=== PATIENT | female | born 1935 | race Caucasian/White ===

== ENCOUNTER 2017-03-26 09:44 | Outpatient (CLI) ==
--- NOTE | 2017-03-26 10:39 | DI ---
EXAM: Three views of the right wrist. History: Right wrist pain and weakness. Findings: Osteopenia. No acute fracture or dislocation. Moderate narrowing of the first carpal met acarpal joint. Mild joint space narrowing seen elsewhere. Impression: No acute osseous abnormality. 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
== END 2017-03-26 09:45 | disposition home or self-care (01) ==
LOC: RAD 09:44
PROVIDERS: ATTEND Internal Medicine
DX: M25.531 Pain in right wrist (principal); R53.1 Weakness

== ENCOUNTER 2017-05-31 08:51 | Outpatient (CLI) ==
--- NOTE | 2017-05-31 11:57 | MAMMO ---
EXAM: Bilateral digital screening mammogram History: Screening Comparison: Screening mammogram 06/19/2015 Findings: MLO and CC views of bilateral breasts demonstrate scattered fibroglandular breast parench yma. Stable benign bilateral vascular calcifications. There are no dominant masses, no suspicious microcalcifications and no architectural distortions Impression: Benign stable mammogram. Recommend followup routine screening mammography in 1 year. BIRADS 2
== END 2017-05-31 08:52 | disposition home or self-care (01) ==
LOC: RAD 08:51
DX: Z12.31 Encounter for screening mammogram for malignant neoplasm of breast (principal)

== ENCOUNTER 2018-09-20 13:15 | Outpatient (CLI) ==
--- NOTE | 2018-09-21 09:46 | MAMMO ---
EXAM: Bilateral digital screening mammogram (2-D and 3-D) History: Screening Comparison: Bilateral mammogram 05/31/2017 Findings: MLO and CC views of bilateral breasts demonstrate scattered fibroglandular breast parenchy ma. CAD was reviewed by the radiologist. Tomosynthesis was performed. Stable benign bilateral scat tered and vascular calcifications. There are no dominant masses, no suspicious microcalcifications a nd no architectural distortions Impression: Benign stable mammogram. Recommend followup routine screening mammography in 1 year. BIRADS 2
== END 2018-09-20 13:16 | disposition home or self-care (01) ==
LOC: RAD 13:15
PROVIDERS: ATTEND Nurse Practitioner Family
DX: Z12.31 Encounter for screening mammogram for malignant neoplasm of breast (principal)

== ENCOUNTER 2019-07-05 11:00 | Outpatient (RCR) | payer OTHER ==
--- NOTE | 2019-06-22 15:15 | RS.OTDNOTE ---
Subjective Date of Note: 06/22/19 Visit #: 7 Number of visits approved by Insurance: 12 Date of Evaluation: 06/05/19 Payer Source: MEDICARE Treatment Diagnosis: OA Hands *Precautions: At risk for trigger finger Current Complaints/Gains: Pt states she is making slow progress but it is progress. States her trigger finger is catching less times during the day. Pain Assessment - Pain Description Pain Description: Sharp, Dull Pain Location: Left ring digit in the MP, PIP, DIP joints and in the palm of the hand just distal of the MP joint. Pain Description: Pt reports tightness and pain a 4-5/10. Current Pain Intensity: 2 Worst Pain Intensity: 4-5 Modalities - Treatment Modality: Ultrasound Parameters/Method Applied: .08wcm2 x 10 mins and x 6 mins thumb MCP/thenar joint and up radial forearm. Patient Position: Sitting Interventions - Exercise/Activities Exercise/Activities/Manual Therapy: Manual therapy/scar massage performed along with PROM/stretching(extension/flexion) progressed to AROM, flexion/extension of PIP, DIP, MCP and thumb PROM-AROM. GS act performed with yellow progressed to red and green digi-flex. HEP with yellow tputty ex's performed. 2# hand weight for wrist flexion/extension and pro/supination. HOME EXERCISE PROGRAM: Progressive stretching program - Objective Findings Objective Findings:: Decreased swelling noted along with increased AROM - Charges Timed Code Treatment Minutes: 54 Total Treatment Time: 54 Procedures billed for this date of service:: MT2 EX US Assessment Patient Education: Education of diagnosis, Body/Joint mechanics, Home Exercise Program, Home Safety, Activity Modification, Education of Plan of Care Patient demonstrates compliance with HEP?: Yes Short Term Goals Goal #1: Pt to increase full fist to 90%. Goal to be met by: 06/16/19 Progress towards goal: Met Goal #2: Pt to increase sfdc architect strength to 25#. Goal to be met by: 06/16/19 Progress towards goal: Met Goal #3: Pt to increase MP flexion to 45 degrees. Goal to be met by: 06/16/19 Progress towards goal: Partially Met Goal #4: Pt pain to decrease to 0-2/10 with AROM. Goal to be met by: 06/16/19 Progress towards goal: Progressing Furnace Checker Goals Goal #1: Pt to increase full fist to 100%. Goal to be met by: 07/05/19 Progress towards goal: Progressing Goal #2: Pt to increase sfdc architect strength to 30#. Goal to be met by: 07/05/19 Progress towards goal: Progressing Goal #3: Pt to increase MP flexion to 90 degrees. Goal to be met by: 07/05/19 Progress towards goal: Progressing Goal #4: Pt to have full AROM of LUE digits and hand to complete activities. Goal to be met by: 07/05/19 Progress towards goal: Progressing Plan Dates of Furnace Checker Goals: 07/05/19 Expiration date of current Insurance Approval:: 07/05/19 PLAN: Continue per POC to max pt's AROM/strength with decreased c/o pain.
--- NOTE | 2019-06-26 15:23 | RS.OTDNOTE ---
Subjective Date of Note: 06/26/19 Visit #: 8 Number of visits approved by Insurance: 12 Date of Evaluation: 06/05/19 Payer Source: MEDICARE Treatment Diagnosis: OA Hands *Precautions: At risk for trigger finger Current Complaints/Gains: Pt states increased c/o pain in dorsal hand. States she "messed with the putty too much." Pain Assessment - Pain Description Pain Description: Sharp, Dull Pain Location: Left ring digit in the MP, PIP, DIP joints and in the palm of the hand just distal of the MP joint. Pain Description: Pt reports tightness and pain a 4-5/10. Current Pain Intensity: 2 Worst Pain Intensity: 7 Modalities - Treatment Modality: Ultrasound Parameters/Method Applied: .04-1.5w/cm x15 mins total Patient Position: Sitting - Hot Pack/Cryotherapy Treatment: Hot Pack Comments:: x10 mins prior to TE Interventions - Exercise/Activities Exercise/Activities/Manual Therapy: Manual therapy/scar massage performed along with PROM/stretching(extension/flexion) progressed to AROM, flexion/extension of PIP, DIP, MCP and thumb PROM-AROM. GS act performed with yellow progressed to red and green digi-flex. HEP with yellow tputty ex's performed. 2# hand weight for wrist flexion/extension and pro/supination. HOME EXERCISE PROGRAM: Progressive stretching program - Objective Findings Objective Findings:: Decreased swelling noted along with increased AROM following tx - Charges Timed Code Treatment Minutes: 51 Total Treatment Time: 62 Procedures billed for this date of service:: HP EX MT US Assessment Patient Education: Education of diagnosis, Body/Joint mechanics, Home Exercise Program, Home Safety, Activity Modification, Education of Plan of Care Patient demonstrates compliance with HEP?: Yes Short Term Goals Goal #1: Pt to increase full fist to 90%. Goal to be met by: 06/16/19 Progress towards goal: Met Goal #2: Pt to increase resource recovery engineer strength to 25#. Goal to be met by: 06/16/19 Progress towards goal: Met Goal #3: Pt to increase MP flexion to 45 degrees. Goal to be met by: 06/16/19 Progress towards goal: Met Goal #4: Pt pain to decrease to 0-2/10 with AROM. Goal to be met by: 06/16/19 Progress towards goal: Progressing Reed Cleaner Goals Goal #1: Pt to increase full fist to 100%. Goal to be met by: 07/05/19 Progress towards goal: Progressing Goal #2: Pt to increase resource recovery engineer strength to 30#. Goal to be met by: 07/05/19 Progress towards goal: Progressing Goal #3: Pt to increase MP flexion to 90 degrees. Goal to be met by: 07/05/19 Progress towards goal: Progressing Goal #4: Pt to have full AROM of LUE digits and hand to complete activities. Goal to be met by: 07/05/19 Progress towards goal: Progressing Plan Dates of Nursing Home Goals: 07/05/19 Expiration date of current Insurance Approval:: 07/05/19 PLAN: Continue per POC to max UE AROM/strength with decreased c/o pain.
--- NOTE | 2019-06-29 15:14 | RS.OTDNOTE ---
Subjective Date of Note: 06/29/19 Visit #: 9 Number of visits approved by Insurance: 12 Date of Evaluation: 06/05/19 Payer Source: MEDICARE Treatment Diagnosis: OA Hands *Precautions: At risk for trigger finger Current Complaints/Gains: Pt states less pain and finger "sticking the last few days." States she has not utilized the yellow putty but states good compliance with stretching and tendon glides ex's. Pain Assessment - Pain Description Pain Description: Sharp, Dull Pain Location: Left ring digit in the MP, PIP, DIP joints and in the palm of the hand just distal of the MP joint. Pain Description: Pt reports tightness and pain a 4-5/10. Modalities - Treatment Parameters/Method Applied: .04-1.0w/cm2 x 12 mins total Treatment Area: thumb MCP and thenar eminence and 4th digit - Hot Pack/Cryotherapy Treatment: Hot Pack Interventions - Exercise/Activities Exercise/Activities/Manual Therapy: Manual therapy/scar massage performed along with PROM/stretching(extension/flexion) progressed to AROM, flexion/extension of PIP, DIP, MCP and thumb PROM-AROM. GS act performed with yellow progressed to red and green digi-flex. HEP with yellow tputty ex's performed. 2# hand weight for wrist flexion/extension and pro/supination. Tendon glides and thumb to palm opposition AROM ex's. HOME EXERCISE PROGRAM: Progressive stretching program - Objective Findings Objective Findings:: Decreased swelling noted along with increased AROM following tx - Charges Timed Code Treatment Minutes: 48 Total Treatment Time: 55 Procedures billed for this date of service:: HP US EX MT Assessment Patient Education: Education of diagnosis, Body/Joint mechanics, Home Exercise Program, Home Safety, Activity Modification, Education of Plan of Care Patient demonstrates compliance with HEP?: Yes Short Term Goals Goal #1: Pt to increase full fist to 90%. Goal to be met by: 06/16/19 Progress towards goal: Met Goal #2: Pt to increase fancy needleworker strength to 25#. Goal to be met by: 06/16/19 Progress towards goal: Met Goal #3: Pt to increase MP flexion to 45 degrees. Goal to be met by: 06/16/19 Progress towards goal: Met Goal #4: Pt pain to decrease to 0-2/10 with AROM. Goal to be met by: 06/16/19 Progress towards goal: Progressing Skilled Nursing Goals Goal #1: Pt to increase full fist to 100%. Goal to be met by: 07/05/19 Progress towards goal: Partially Met Goal #2: Pt to increase fancy needleworker strength to 30#. Goal to be met by: 07/05/19 Progress towards goal: Progressing Goal #3: Pt to increase MP flexion to 90 degrees. Goal to be met by: 07/05/19 Progress towards goal: Partially Met Goal #4: Pt to have full AROM of LUE digits and hand to complete activities. Goal to be met by: 07/05/19 Progress towards goal: Partially Met Plan Dates of Skilled Nursing Goals: 07/05/19 Expiration date of current Insurance Approval:: 07/05/19 PLAN: Continue tx per POC to max hand AROM/strength
--- NOTE | 2019-07-05 15:13 | RS.OTPN ---
Subjective Date of Note: 07/03/19 Visit #: 10 Number of visits approved by Insurance: 12 Date of Evaluation: 06/05/19 Payer Source: MEDICARE Date of Onset/Injury/Change in Status: 05/31/19 Surgery Performed?: No Treatment Diagnosis: OA Hands Treatment Side (optional): Left *Precautions: At risk for trigger finger Prior Level of Function.....Patient was independent with: ADL's, Self Care, Work /Vocation, Caregiving, Ambulation/Mobility, Community Integration/Access History of Condition/Mechanism of Injury: Pt has had increased pain and difficulty with AROM of the LUE ring digit flexion and MP/PIP/DIP joints. Pt reports she has a sticky finger and it catches at times. Level of Function: Pt has had to increase her assistance with cleaning, cooking , and carrying items due to the pain and discomfort in her Left ring digit and hand. Pt is not able to open a jar. Pt has difficulty carrying groceries. Functional Limitations: Lifting, Carrying Current Complaints/Gains: Pt complains of the catching of the ring digit on the LUE when she squeezes very tight. Pt has pain with flexion of the LEft ring digit MP, PIP, and DIP joints into full flexion of a fist. Pt complains that it really has not improved much. OT feels that patient has improved minimally because now she is able to make 95% of a full fist. Pt continues with discomfort in the Left ring digit. Pt has difficulty with functional use of fine motor tasks with the LUE. Pain Assessment - Pain Description Pain Description: Sharp, Dull Pain Location: Left ring digit in the MP, PIP, DIP joints and in the palm of the hand just distal of the MP joint. Pain Description: Pt reports tightness and pain a 4-5/10. Current Pain Intensity: 0 Worst Pain Intensity: 5 Other comments regarding pain:: Pain increases with full flexion of digits and when the finger locks in flexion. Functional Outcome Measures - G Codes & Severity Modifier G Codes: . Source of G Code score: . Observation - Observation Posture: Normal Handedness: Right Palpation Palpation Findings: Tenderness, Trigger Point Comments:: Pt has 2 trigger points in the subscapularis muscle of the left shoulder. Pt has tenderness with making a full fist of the LUE. Pt has pain in the palm of the left hand. Sensation Right Upper Extremity: Intact/Normal Right Lower Extremity: Impaired Comments: Pt reports tingling and numbness of the Left small digit and ring digit. Modalities - Treatment Parameters/Method Applied: .4 w/cm2 for 10 minutes to decrease scar tissue, promote healing, increase elasticity of left ring digit muscles and tendon to increase flexion of Left hand into a full fist. Treatment Area: Left ring digit MP area where scar tissue is present. Patient Position: Sitting - Hot Pack/Cryotherapy Treatment: Hot Pack Interventions - Exercise/Activities Exercise/Activities/Manual Therapy: Manual therapy/scar massage performed along with PROM/stretching(extension/flexion) progressed to AROM, flexion/extension of PIP, DIP, MCP and thumb PROM-AROM. GS act performed with yellow progressed to red and green digi-flex. HEP with yellow tputty ex's performed. 2# hand weight for wrist flexion/extension and pro/supination. Tendon glides and thumb to palm opposition AROM ex's. HOME EXERCISE PROGRAM: Progressive stretching program - Objective Findings Objective Findings:: Decreased swelling noted along with increased AROM following tx - Charges Timed Code Treatment Minutes: 60 Total Treatment Time: 66 Procedures billed for this date of service:: US, MT x2, EX, HP Assessment Assessment: Pt has increased full fist flexion after stretching and scar massage completed with the Left ring digit. Patient Education: Education of diagnosis, Body/Joint mechanics, Home Exercise Program, Education of Plan of Care Rehab Potential: Good Problems/Comments: Pt was advised to use the Left hand and continue to use it. Pt has catching of Left ring digit in flexion when completing extreme flexion. Pt has difficulty making a full fist unless she has been using the hand and working on flexion. Pt reports it really is not much better. Short Term Goals Goal #1: Pt to increase full fist to 90%. Goal to be met by: 06/16/19 Progress towards goal: Met Goal #2: Pt to increase tobacco sample puller strength to 25#. Goal to be met by: 06/16/19 Progress towards goal: Met Goal #3: Pt to increase MP flexion to 45 degrees. Goal to be met by: 06/16/19 Progress towards goal: Met Goal #4: Pt pain to decrease to 0-2/10 with AROM. Goal to be met by: 06/16/19 Progress towards goal: Progressing Nursing Home Goals Goal #1: Pt to increase full fist to 100%. Goal to be met by: 07/05/19 Progress towards goal: Partially Met Goal #2: Pt to increase tobacco sample puller strength to 30#. Goal to be met by: 07/05/19 Progress towards goal: Progressing Goal #3: Pt to increase MP flexion to 90 degrees. Goal to be met by: 07/05/19 Progress towards goal: Partially Met Goal #4: Pt to have full AROM of LUE digits and hand to complete activities. Goal to be met by: 07/05/19 Progress towards goal: Partially Met Plan Dates of Nursing Home Goals: 07/05/19 Expiration date of current Insurance Approval:: 07/05/19 PLAN: Pt discharged today from OT with all STG met and Most LTG partially met. Pt was advised to go to Dr. Ralph if the problem continues to see if he would administer her a cortizone shot in her hand where the scar tissue is located. Comments: Pt did feel like therapy helped some but did not feel the need to continue. Frequency: 2 X week Duration: 4 weeks
--- NOTE | 2019-07-05 15:54 | RS.OTDCSUM ---
Subjective Date of Discharge: 07/05/19 Date of Evaluation: 06/05/19 Number of Visits: 11 Treatment Diagnosis: OA hands Current Level of Function: Pt has pain with left full fist flexion and will favor her left hand. Pt is able to complete 1.5# and 3.0 # mass check pilot digi-flex. Pt continues to have some discomfort with full left ring digit flexion. Pt is driving. Pt is having difficulty with opening jars, carrying groceries, and lifting with the left hand. Current Complaints/Gains: Pt reports her left ring digit locks and hurts in full flexion. Pt then reports she does not use the left hand much because she is afraid it will hurt. Pt is able to flex the left fist to 90% following stretching and flexing. Pain Assessment - Pain Description Pain Description: Sharp, Dull Pain Location: Left ring digit in the MP, PIP, DIP joints and in the palm of the hand just distal of the MP joint. Pain Description: Pt reports tightness and pain a 4-5/10. Functional Outcome Measures UE Functional Index: 63 - G Codes & Severity Modifier G Codes: . Source of G Code score: . Observation - Observation Posture: Normal Handedness: Right Palpation Palpation Findings: Tenderness, Trigger Point Comments:: Pt has 2 trigger points in the subscapularis muscle of the left shoulder. Pt has tenderness with making a full fist of the LUE. Pt has pain in the palm of the left hand. Sensation Right Upper Extremity: Intact/Normal Right Lower Extremity: Impaired Comments: Pt reports tingling and numbness of the Left small digit and ring digit. Interventions - Exercise/Activities Exercise/Activities/Manual Therapy: Manual therapy/scar massage performed along with PROM/stretching(extension/flexion) progressed to AROM, flexion/extension of PIP, DIP, MCP and thumb PROM-AROM. GS act performed with yellow progressed to red and green digi-flex. HEP with yellow tputty ex's performed. 2# hand weight for wrist flexion/extension and pro/supination. Tendon glides and thumb to palm opposition AROM ex's. HOME EXERCISE PROGRAM: Progressive stretching program - Objective Findings Objective Findings:: Decreased swelling noted along with increased AROM following tx - Charges Timed Code Treatment Minutes: 50 Total Treatment Time: 58 Procedures billed for this date of service:: HP, US, MT, EX Assessment Assessment: Pt has made some progress in her pain decreasing. Pt is able to complete more flexion in the left ring digit to make 90% of a full fist quicker than she did at initial evaluation. Pt was having alot of pain in the left hand and was limited in ability to use the hand. Patient Education: Education of diagnosis, Home Exercise Program, Education of Plan of Care Rehab Potential: Good Problems/Comments: Pt has scar tissue and continues to have intermittent locking of the left ring digit into flexion. Short Term Goals Goal #1: Pt to increase full fist to 90%. Goal to be met by: 06/16/19 Progress towards goal: Met Goal #2: Pt to increase check pilot strength to 25#. Goal to be met by: 06/16/19 Progress towards goal: Met Goal #3: Pt to increase MP flexion to 45 degrees. Goal to be met by: 06/16/19 Progress towards goal: Met Goal #4: Pt pain to decrease to 0-2/10 with AROM. Goal to be met by: 06/16/19 Progress towards goal: Met Director Of Marketing [employer] Goals Goal #1: Pt to increase full fist to 100%. Goal to be met by: 07/05/19 Progress towards goal: Progressing Goal #2: Pt to increase check pilot strength to 30#. Goal to be met by: 07/05/19 Progress towards goal: Progressing Goal #3: Pt to increase MP flexion to 90 degrees. Goal to be met by: 07/05/19 Progress towards goal: Partially Met Goal #4: Pt to have full AROM of LUE digits and hand to complete activities. Goal to be met by: 07/05/19 Progress towards goal: Partially Met Plan Reason for Discharge:: Order has ended. Comments: Pt reported that she may go to another doctor she is not sure.
== END 2019-07-22 23:59 ==
PROVIDERS: ATTEND Internal Medicine
DX: M19.042 Primary osteoarthritis, left hand (principal); M19.041 Primary osteoarthritis, right hand